=== PATIENT | female | born 1955 | race Caucasian/White ===

== ENCOUNTER 2023-11-15 11:04 | Outpatient (CLI) | payer MEDICARE, BC ==
[~2023-11-15 11:04] MED LIST: CITA40TA17 PO; LAMO150T6 PO; LEVO75TA7 PO; MOEX7.5T2 PO; PANT40TA54 PO; TRAM50TA2 PO; TRIA1TAB3 PO
== END 2023-11-15 23:59 | disposition home or self-care (01) ==
LOC: RAD 11:04
PROVIDERS: ATTEND Physician Assistant
DX: Z12.2 Encounter for screening for malignant neoplasm of respiratory organs (principal); I25.10 Atherosclerotic heart disease of native coronary artery without angina pectoris; J98.4 Other disorders of lung; Z87.891 Personal history of nicotine dependence; K44.9 Diaphragmatic hernia without obstruction or gangrene; M43.25 Fusion of spine, thoracolumbar region; M43.8X6 Other specified deforming dorsopathies, lumbar region
CPT/HCPCS: 71271